=== PATIENT | male | born 2000 | race Caucasian/White ===

== ENCOUNTER 2019-07-24 19:41 | Inpatient (IN) | payer BC ==
[~2019-07-24] VITALS: Ht 180.3 cm; Wt 136.6 kg
[~2019-07-24 19:41] MED LIST: DULERA1 ARO IH; NASONEX SPRAY17 GM NS; PREDNISONE20 MG PO; PROAIR HFA0.09 MG/AC IH; SINGULAIR 110 MG/TAB PO; ZYRTEC 10MG10 MG PO
[2019-07-24 20:12] LABS: BASO % 0.3 % (0.0-2.0); EOS # 0.1 (0.0-0.7); EOS % 1.4 % (0-4.0); GRAN # 7.9 (1.4-6.5); GRAN % 76.7 % (42.2-75.2); HEMATOCRIT 44.2 % (42.0-52.0); HEMOGLOBIN 14.8 g/dl (13.5-18.0); LYMPH # 1.4 (1.2-3.4); LYMPH % 13.6 % (20.0-51.0); MEAN CELL VOLUME 86 fl (80.0-100.0); MEAN CORPUSCULAR HEMOGLOBIN 29 pg (27.0-31.0); MEAN CORPUSCULAR HGB CONC 34 g/dl (33.0-37.0); MEAN PLATELET VOLUME 9.8 fl (7.4-10.4); MONO # 0.8 (0.1-0.6); MONO % 7.6 % (1.7-9.3); PLATELET COUNT 263 K/mm3 (130-400); RED BLOOD COUNT 5.17 M/mm3 (4.20-5.60)
[2019-07-24 20:27] LABS: ALBUMIN 4.4 gm/dL (3.5-5.0); BILIRUBIN,TOTAL 0.8 mg/dL (0.0-1.0); C-REACTIVE PROTEIN 7.4 mg/dL (0.0-0.9); CALCIUM 9.1 mg/dL (8.4-10.2); CREATININE, serum 1.02 (0.66-1.25); POTASSIUM 3.7 mmol/L (3.4-5.0); TOTAL PROTEIN 7.9 gm/dL (6.4-8.2)
[2019-07-24 23:05] VITALS: BP 123/64; PULSE 108; TEMP 99
[2019-07-25 04:03] VITALS: BP 141/71; PULSE 97; TEMP 102.1
--- NOTE | 2019-07-25 06:33 | NUR ---
TEMPERATURE ELEVATED. TYLENOL ADMIN. NO c/o DYSPNEA AT REST. LAST HEART RATE 97 bpm.
--- NOTE | 2019-07-25 07:15 | NUR ---
Pt called nurses station, stated he is having a hard time breathing. O2 sats checked, patient satting at 96% on room air. HOB elevated, pt is coughing up minimal amts of phlegm often. HR tachy, has been during course of stay. Pt has NS running to LAC w/o complications at 125 ml/hr. Will continue to monitor.
[2019-07-25 07:57] VITALS: BP 127/66; PULSE 111; TEMP 99.6
--- NOTE | 2019-07-25 09:30 | NUR ---
Pt assessment completed and charted. Flu shot administered to rt deltoid, education provided. pt states he is breathing better since having HOB elevated. Pt has been afebrile. LS bases sound coarse, UL bilaterally CTA. LAC IV w/ NS @125 ml/hr running w/o complications. Pt on room air. Pulses strong bilaterally. Pt had episode of diarrhea this morning, didn't eat much breakfast. No other concerns expressed at this time.
--- NOTE | 2019-07-25 09:34 | NUR ---
Initial visit; Patient thanked Dental Equipment Mechanic for looking in on him and offering encouragement and prayer.
[2019-07-25 11:57] VITALS: BP 131/70; PULSE 96; TEMP 98.4
--- NOTE | 2019-07-25 15:45 | NUR ---
Fundraising Specialist met with patient to discuss discharge planning. Patient lives in [place] and is a student at [employer]. Patient is from [place], [place]. Patient states he currently does not have a primary care physician but would like to establish primary care in [place]. Patient reports he sometimes utilizes [facility]. SW provided list of primary care providers in [place]. Patient lives with roommates, one of which is his brother Denisa. Patient gets his medications from [facility] pharmacy with no difficulty. Patient plans to return home upon discharge. LASHON contacted the office of the [facility] to notify them of patient admission. No additional concerns at this time.
[2019-07-25 16:56] VITALS: BP 137/64; PULSE 96; TEMP 98.5
--- NOTE | 2019-07-25 17:45 | NUR ---
Pt placed on droplet precautions, SCDs. No concerns expressed by patient at this time. VSS.
--- NOTE | 2019-07-25 18:33 | NUR ---
Pt called about coughing up blood, this nurse checked on patient, very minimal blood present in small amount of sputum, minimal strands of blood. Informed Dr. Moran, hospitalist this evening, will continue to watch, common w/ pt condition. Informed patient, who verbalized understanding.
[2019-07-25 20:30] VITALS: BP 148/64; PULSE 97; TEMP 97.5
--- NOTE | 2019-07-25 20:30 | NUR ---
Shift assessment complete. Patient in bed, awake. States headache 02/16, also having neck pain. Prn tylenol given. Prn cough medicine also given per pt request. Left AC IV flushed with NS, infusing intermittent abx. Denies further needs at this time. Will continue to monitor.
[2019-07-25 23:42] VITALS: BP 139/66; PULSE 78; TEMP 97.6
[2019-07-26 03:54] VITALS: BP 102/55; PULSE 72; TEMP 98.8
--- NOTE | 2019-07-26 05:42 | NUR ---
Patient in bed, awake. States neck pain is 9/10. Prn pain medication given, prn cough medicine also given, per pt request. Mom at bedside. Denies further needs at this time. Will continue to monitor.
[2019-07-26 06:48] LABS: CALCIUM 8.9 mg/dL (8.4-10.2); CREATININE, serum 0.96 (0.66-1.25)
[2019-07-26 07:41] LABS: BASO % 0.6 % (0.0-2.0); EOS # 0.2 (0.0-0.7); EOS % 3.3 % (0-4.0); GRAN # 3.6 (1.4-6.5); GRAN % 57.4 % (42.2-75.2); HEMATOCRIT 38.7 % (42.0-52.0); LYMPH # 1.6 (1.2-3.4); LYMPH % 25.1 % (20.0-51.0); MEAN CELL VOLUME 88 fl (80.0-100.0); MEAN CORPUSCULAR HEMOGLOBIN 29 pg (27.0-31.0); MEAN CORPUSCULAR HGB CONC 33 g/dl (33.0-37.0); MEAN PLATELET VOLUME 10.1 fl (7.4-10.4); MONO # 0.8 (0.1-0.6); MONO % 13.1 % (1.7-9.3); PLATELET COUNT 229 K/mm3 (130-400); REDCELL DISTRIBUTION WIDTH-CV 12.2 % (11.5-14.5)
[2019-07-26 07:53] LABS: HEMOGLOBIN 12.7 g/dl (13.5-18.0)
[2019-07-26 08:23] VITALS: BP 132/78; PULSE 94; TEMP 98.3
--- NOTE | 2019-07-26 08:42 | NUR ---
Lab called on pt Hgb drop from yesterday, this nurse informed LIDIA Zaragoza.
--- NOTE | 2019-07-26 13:50 | NUR ---
Pt discharge instructions discussed and reviewed with patient who verbalized understanding. All questions answered, no further concerns expressed. LAC INT IV dc'd w/ catheter tip intact and no complications. Pt awaiting ride at this time.
== END 2019-07-26 14:30 | disposition home or self-care (01) | DRG 871 ==
LOC: COL.ER 19:41 → MEDICAL 21:26
PROVIDERS: Emergency Medicine; Physician Assistant; ADMIT Internal Medicine
DX: A41.9 Sepsis, unspecified organism (principal); J15.7 Pneumonia due to Mycoplasma pneumoniae; J45.909 Unspecified asthma, uncomplicated; Z79.51 Long term (current) use of inhaled steroids; Z79.52 Long term (current) use of systemic steroids
CPT/HCPCS: 99222-AI; 99239; J0456; J0696; J7030; J7050